=== PATIENT | male | born 1995 | race Asian ===

== ENCOUNTER 2024-06-06 11:29 | Emergency (ER) | payer OTHER ==
[~2024-06-06] VITALS: Ht 182.9 cm; Wt 102.8 kg
[2024-06-06 14:27] LABS: BASO # 0.1 10^3/uL (0.0-0.2); BASO % 0.9 % (0.0-1.0); EOS # 0.3 10^3/uL (0.0-0.5); EOS % 5.5 % (0.0-3.0); HEMATOCRIT 48.5 % (42.0-52.0); HEMOGLOBIN 16.9 g/dl (13.5-17.5); LYMPH # 1.1 10^3/uL (1.5-5.0); LYMPH % 20.8 % (24.0-44.0); MEAN CORPUSCULAR HEMOGLOBIN 28.7 pg (27.0-33.0); MEAN CORPUSCULAR HGB CONC 34.8 g/dl (32.0-36.5); MEAN CORPUSCULAR VOLUME 82.3 fl (80.0-96.0); MONO # 0.4 10^3/uL (0.0-0.8); MONO % 7.7 % (2.0-8.0); NEUTROPHILS # 3.4 10^3/uL (1.5-8.5); NEUTROPHILS % 64.5 % (36.0-66.0); PLATELET COUNT, AUTOMATED 316 10^3/uL (150-450); RED BLOOD COUNT 5.89 10^6/uL (4.30-6.10); WHITE BLOOD COUNT 5.3 10^3/uL (4.0-10.0)
[2024-06-06 14:39] LABS: PROTHROMBIN TIME 12.9 SECONDS (12.5-14.5)
[2024-06-06 14:56] LABS: LIPASE 53 U/L (12-53)
[2024-06-06 14:58] LABS: ALBUMIN 4.6 G/DL (3.2-5.2); ALKALINE PHOSPHATASE 83 U/L (46-116); ALT/SGPT 40 U/L (7.0-40); AST/SGOT 20 U/L (<34); BILIRUBIN,DIRECT 0.2 MG/DL (<0.4); BILIRUBIN,TOTAL 0.5 MG/DL (0.3-1.2); BLOOD UREA NITROGEN 10 MG/DL (9-23); CALCIUM LEVEL 10.1 MG/DL (8.5-10.1); CARBON DIOXIDE LEVEL 31 MMOL/L (20-31); CHLORIDE LEVEL 102 MMOL/L (98-107); CK-MB VALUE MASS < 1.0 NG/ML (<3.6); CPK CREATINE PHOSPHOKINASE 136 U/L (46-171); GLOMERULAR FILTRATION RATE > 60.0 (>60); GLUCOSE, FASTING 90 MG/DL (60-100); MB/CK RELATIVE INDEX 0.73 (< OR =4); POTASSIUM SERUM 4.1 MMOL/L (3.5-5.1); SODIUM LEVEL 137 MMOL/L (136-145); TOTAL PROTEIN 8.3 G/DL (5.7-8.2)
[2024-06-06] MEDS ORDERED: ISOVUE-370 76% 100ML VIAL As Ordered ONE (17:33)
[2024-06-06 18:30] VITALS: TEMP 98.3
[2024-06-06 20:31] VITALS: BP 125/81; O2SAT 95
== END 2024-06-06 20:58 | disposition home or self-care (01) ==
LOC: M ED 11:29
DX: B34.8 Other viral infections of unspecified site (principal); J45.909 Unspecified asthma, uncomplicated; F32.A Depression, unspecified; F10.10 Alcohol abuse, uncomplicated
CPT/HCPCS: 36415; 71045; 71275; 80048; 80076; 82550; 82553; 83690; 84484; 85025; 85610; 93005; 99284; Q9967

== ENCOUNTER 2025-08-30 13:40 | Inpatient (IN) | payer OTHER ==
[2025-08-30] MEDS: HYDROMORPHONE HCL 0.5 MG/0.5 ML SYRINGE IV PRN (14:14)
[2025-08-30 14:30] LABS: BASO # 0.0 10^3/uL (0.0-0.2); BASO % 0.3 % (0.0-1.0); EOS # 0.1 10^3/uL (0.0-0.5); EOS % 1.1 % (0.0-3.0); LYMPH # 1.1 10^3/uL (1.5-5.0); LYMPH % 9.4 % (24.0-44.0); MONO # 0.5 10^3/uL (0.0-0.8); MONO % 4.6 % (2.0-8.0); NEUTROPHILS # 9.8 10^3/uL (1.5-8.5); NEUTROPHILS % 84.1 % (36.0-66.0); PLATELET COUNT, AUTOMATED 302 10^3/uL (150-450)
[2025-08-30] MEDS ORDERED: HOME MED LIST COMPLETE! XX SCH (14:30)
[2025-08-30] MEDS ORDERED: ONDANSETRON 4MG/2ML VIAL IV PRN (14:55)
[2025-08-30] MEDS ORDERED: SENNA 8.6 MG TAB PO PRN (14:55)
[2025-08-30 14:57] LABS: CALCIUM LEVEL 8.7 MG/DL (8.5-10.1); CARBON DIOXIDE LEVEL 29 MMOL/L (20-31); CHLORIDE LEVEL 103 MMOL/L (98-107); CREATININE FOR GFR 0.97 MG/DL (0.70-1.30); GLOMERULAR FILTRATION RATE > 90.0 (>60); POTASSIUM SERUM 4.2 MMOL/L (3.5-5.1); SODIUM LEVEL 143 MMOL/L (136-145)
[2025-08-30] MEDS: MORPHINE 4 MG/ML 1 ML VIAL IV PRN ×2 (16:16→23:15)
[2025-08-30 20:42] VITALS: BP 168/100; TEMP 101.9; O2SAT 98
[2025-08-30 20:58] VITALS: TEMP 97.9
[2025-08-30] MEDS ORDERED: NALOXONE INJ 0.4 MG/1 ML VIAL IV PRN (22:45)
[2025-08-30 23:54] VITALS: BP 150/90; O2SAT 97
[2025-08-30] MEDS: LR 1,000 ML IV SCH (23:58)
[2025-08-31] VITALS (7 sets, daily range): BP systolic 136–166; BP diastolic 78–100; TEMP 97.3–100.4; O2SAT 87–97
[2025-08-31 07:11] LABS: PLATELET COUNT, AUTOMATED 302 10^3/uL (150-450)
[2025-08-31 07:27] LABS: CALCIUM LEVEL 8.9 MG/DL (8.5-10.1); CARBON DIOXIDE LEVEL 31 MMOL/L (20-31); CHLORIDE LEVEL 100 MMOL/L (98-107); CREATININE FOR GFR 1.08 MG/DL (0.70-1.30); GLOMERULAR FILTRATION RATE > 90.0 (>60); POTASSIUM SERUM 4.0 MMOL/L (3.5-5.1); SODIUM LEVEL 141 MMOL/L (136-145)
[2025-08-31] MEDS ORDERED: LIDOCAINE 2% 100 MG/5 ML SDV (FOR ANES.) As Ordered ONE (13:47)
[2025-08-31] MEDS ORDERED: MIDAZOLAM INJ 2 MG/2 ML VIAL As Ordered ONE (13:47)
[2025-08-31] MEDS ORDERED: ONDANSETRON 4MG/2ML VIAL As Ordered ONE (13:51)
[2025-08-31] MEDS ORDERED: dexAMETHasone 4 MG/ML 1 ML VIAL As Ordered ONE (13:51)
[2025-08-31] MEDS ORDERED: dexmedeTOMIDine (4 MCG/ML) 200 MCG/50 ML BTL As Ordered ONE (13:53)
[2025-08-31] MEDS ORDERED: ACETAMINOPHEN 1000MG/100ML IV BAG As Ordered ONE (14:19)
[2025-08-31] MEDS ORDERED: HYDROmorphone HCL 2 MG/ML 1 ML VIAL As Ordered ONE (14:22)
[2025-08-31] MEDS ORDERED: KETOROLAC 30 MG/ML 1 ML VIAL As Ordered ONE (14:33)
[2025-08-31] MEDS: LR 1,000 ML IV SCH (16:00)
[2025-08-31] MEDS ORDERED: ASPI-255 PO (16:08)
[2025-08-31] MEDS ORDERED: OXYC-517 PO (16:08)
[2025-08-31] MEDS: ONDANSETRON 4MG/2ML VIAL IV PRN (16:32)
[2025-08-31] MEDS: HYDROMORPHONE HCL 0.5 MG/0.5 ML SYRINGE IV PRN (16:32)
[2025-08-31] MEDS: ceFAZolin SODIUM 2 GM in DEXTROSE 5% (D5W) ADV/MINI-BAG 50 ML IV SCH (21:14)
[2025-09-01 01:31] VITALS: BP 142/80; TEMP 100.3; O2SAT 94
[2025-09-01 02:31] VITALS: TEMP 99.9; O2SAT 94
[2025-09-01 03:18] VITALS: TEMP 99.7
[2025-09-01 04:07] VITALS: BP 160/83; TEMP 97.4; O2SAT 95
[2025-09-01 07:10] LABS: PLATELET COUNT, AUTOMATED 243 10^3/uL (150-450)
[2025-09-01 07:27] LABS: CALCIUM LEVEL 8.6 MG/DL (8.5-10.1); CARBON DIOXIDE LEVEL 32 MMOL/L (20-31); CHLORIDE LEVEL 100 MMOL/L (98-107); CREATININE FOR GFR 1.06 MG/DL (0.70-1.30); GLOMERULAR FILTRATION RATE > 90.0 (>60); POTASSIUM SERUM 3.7 MMOL/L (3.5-5.1); SODIUM LEVEL 141 MMOL/L (136-145)
[2025-09-01] MEDS ORDERED: OXYC-517 PO (07:36)
[2025-09-01] MEDS ORDERED: ENOXAPARIN 40 MG/0.4 ML SYRINGE (J1650 PER 10MG) SC SCH (09:00)
== END 2025-09-01 10:08 | disposition home or self-care (01) | DRG 494 ==
LOC: EDBD 13:40 → M ED 14:26 → M ED INP 14:53 → M MS4PR 20:39
PROVIDERS: ADMIT Orthopaedic Surgery; ATTEND Orthopaedic Surgery
PROC: 0QSH34Z Reposition Left Tibia with Internal Fixation Device, Percutaneous Approach (ICD-10-PCS; principal; 2025-08-31 12:15)
DX: S89.132A Salter-Harris Type III physeal fracture of lower end of left tibia, initial encounter for closed fracture (principal); W00.0XXA Fall on same level due to ice and snow, initial encounter; Y92.009 Unspecified place in unspecified non-institutional (private) residence as the place of occurrence of the external cause

== ENCOUNTER 2025-09-06 15:16 | Emergency (ER) | payer OTHER ==
[~2025-09-06] VITALS: Ht 182.9 cm; Wt 95.0 kg
[~2025-09-06 15:16] MED LIST: ASPI-255 PO; OXYC-517 PO
[2025-09-06] MEDS: KETOROLAC 30 MG/ML 1 ML VIAL IV ONE (16:07)
[2025-09-06] MEDS: MORPHINE 4 MG/ML 1 ML VIAL IV ONE (16:07)
[2025-09-06] MEDS: ONDANSETRON 4MG/2ML VIAL IV ONE (16:07)
[2025-09-06 16:09] LABS: BASO # 0.0 10^3/uL (0.0-0.2); BASO % 0.3 % (0.0-1.0); EOS # 0.1 10^3/uL (0.0-0.5); EOS % 1.6 % (0.0-3.0); LYMPH # 0.9 10^3/uL (1.5-5.0); LYMPH % 10.1 % (24.0-44.0); MONO # 0.5 10^3/uL (0.0-0.8); MONO % 6.1 % (2.0-8.0); NEUTROPHILS # 7.2 10^3/uL (1.5-8.5); NEUTROPHILS % 81.2 % (36.0-66.0); PLATELET COUNT, AUTOMATED 420 10^3/uL (150-450)
[2025-09-06 16:37] LABS: CALCIUM LEVEL 9.2 MG/DL (8.5-10.1); CARBON DIOXIDE LEVEL 28.0 MMOL/L (20-31); CHLORIDE LEVEL 102.0 MMOL/L (98-107); CREATININE FOR GFR 1.14 MG/DL (0.70-1.30); GLOMERULAR FILTRATION RATE 89.3 (>60); POTASSIUM SERUM 4.1 MMOL/L (3.5-5.1); SODIUM LEVEL 140.0 MMOL/L (136-145)
[2025-09-06 17:14] LABS: INR 0.97
[2025-09-06 17:55] VITALS: TEMP 97.3
[2025-09-06] MEDS: MORPHINE 2 MG/ML 1 ML VIAL IV ONE (18:35)
[2025-09-06 18:45] VITALS: BP 146/68; O2SAT 97
[2025-09-06] MEDS: IBUPROFEN 800 MG TAB PO ONE (18:56)
== END 2025-09-06 19:03 | disposition home or self-care (01) ==
LOC: M ED 15:16
DX: R60.0 Localized edema (principal); G89.18 Other acute postprocedural pain; R20.2 Paresthesia of skin; Z79.82 Long term (current) use of aspirin; Z79.899 Other long term (current) drug therapy
CPT/HCPCS: 73590; 80048; 83605; 85025; 85610; 85730; 87040; 93971; 96374; 99284; J1885; J2405